=== PATIENT | female | born 1955 | race Caucasian/White ===

== ENCOUNTER 2020-02-10 07:57 | Day surgery (SDC) | payer OTHER ==
[~2020-02-10] VITALS: Ht 157.5 cm; Wt 57.5 kg
[2020-02-10] MEDS ORDERED: LISI40TA PO (08:55)
[2020-02-10] MEDS ORDERED: ATOR40TA78 PO (08:55)
[2020-02-10] MEDS ORDERED: HYDROmorphone 1 MG/ML, 1ML INJ IVPush PRN (09:00)
[2020-02-10] MEDS ORDERED: FENTANYL PF 100 MCG/2ML IV PRN (09:00)
[2020-02-10] MEDS ORDERED: MEPERIDINE/PF 25MG/0.5ML IVPush PRN (09:00)
[2020-02-10] MEDS ORDERED: CHLORHEXIDINE 15 ML UDC MM ONE (09:00)
[2020-02-10] MEDS ORDERED: OXYcodone 5 MG/5 ML ORAL.SOL UDC PO PRN (09:00)
[2020-02-10] MEDS ORDERED: PROMETHAZINE 25 MG/ML, 1ML IVPush PRN (09:00)
[2020-02-10] MEDS ORDERED: LACTATED RINGERS 1,000 ML IV SCH (09:00)
[2020-02-10] MEDS ORDERED: HYDROcodone/APAP 7.5-325MG/15ML UDC PO PRN (09:00)
[2020-02-10] MEDS ORDERED: CHLORHEXIDINE 15 ML UDC ONE (09:05)
[2020-02-10] MEDS ORDERED: MIDAZOLAM 1 MG/ML, 2ML ONE (09:10)
[2020-02-10] MEDS ORDERED: FENTANYL PF 100 MCG/2ML ONE (09:11)
[2020-02-10 09:19] VITALS: BP 125/78
[2020-02-10] MEDS ORDERED: SUCCINYLCHOLINE 20 MG/ML, 10ML ONE (09:40)
[2020-02-10] MEDS ORDERED: ONDANSETRON 2MG/ML, 2ML ONE (09:40)
[2020-02-10] MEDS ORDERED: DEXAMETHASONE 4 MG/ML, 1ML ONE (09:40)
[2020-02-10] MEDS ORDERED: PROPOFOL 10 MG/ML, 20ML ONE (09:40)
[2020-02-10] MEDS ORDERED: ROCURONIUM 10 MG/ML,10ML ONE (09:40)
[2020-02-10] MEDS ORDERED: OMNIPAQUE 350 MG/ML, 50 ML BOTTLE ONE (10:55)
== END 2020-02-10 12:30 | disposition home or self-care (01) ==
LOC: OUT 07:57
PROVIDERS: ATTEND Internal Medicine
DX: K86.89 Other specified diseases of pancreas (principal); C25.0 Malignant neoplasm of head of pancreas; K83.1 Obstruction of bile duct; I10 Essential (primary) hypertension; J44.9 Chronic obstructive pulmonary disease, unspecified; Z20.828 Contact with and (suspected) exposure to other viral communicable diseases; Z79.899 Other long term (current) drug therapy
CPT/HCPCS: 43242; 43274; 74328; 87635; 88172; 88173; 88307; 93005; C1769; C1894; C2625; J0330; J1100; J2250; J2405; J2704; J3010; J7120; Q9967